=== PATIENT | female | born 1995 | race Two or more races ===

== ENCOUNTER 2025-01-30 09:45 | Emergency (ER) | payer BC ==
[~2025-01-30] VITALS: Ht 149.9 cm; Wt 73.8 kg
[2025-01-30 10:43] LABS: KETONE, URINE AUTO RFX NEGATIVE (NEGATIVE); MUCUS, URINE RFX SMALL (NEGATIVE); NITRITE, URINE AUTO RFX NEGATIVE (NEGATIVE); RBC, URINE AUTO RFX 5 /HPF (0-3); SQUAM EPITHELIAL CELL UR AURFX 3 /HPF (0-6); WBC, URINE AUTO RFX 2 /HPF (0-3)
[2025-01-30 10:44] LABS: LEUKOCYTE ESTERASE UR AUTO RFX 1+ (NEGATIVE)
[2025-01-30 11:26] LABS: PLATELET COUNT, AUTOMATED 289 10^3/uL (150-450)
[2025-01-30 12:01] LABS: ALT/SGPT 15 U/L (7.0-40); AST/SGOT 16 U/L (<34); CALCIUM LEVEL 9.0 MG/DL (8.5-10.1); CARBON DIOXIDE LEVEL 21 MMOL/L (20-31); CHLORIDE LEVEL 103 MMOL/L (98-107); CREATININE FOR GFR 0.60 MG/DL (0.55-1.30); GLOMERULAR FILTRATION RATE > 90.0 (>60); POTASSIUM SERUM 3.9 MMOL/L (3.5-5.1); SODIUM LEVEL 138 MMOL/L (136-145)
[2025-01-30 12:07] LABS: HCG, SERUM QUALITATIVE POSITIVE (NEGATIVE)
[2025-01-30 12:17] LABS: Trichomonas vaginalis (AMP) NOT DETECTED (NEGATIVE)
[2025-01-30 12:36] LABS: HIV 1&2 SCREEN NEGATIVE (NEGATIVE)
[2025-01-30 12:40] LABS: GC DNA AMPLIFICATION NEGATIVE (NEGATIVE)
[2025-01-30 12:43] LABS: HEPATITIS C VIRUS ABY INDEX < 0.02 INDEX (<0.8)
[2025-01-30] MEDS: AZITHROMYCIN 250 MG TABLET PO ONE (13:23)
[2025-01-30 13:27] VITALS: BP 115/69; TEMP 98; O2SAT 97
== END 2025-01-30 13:28 | disposition home or self-care (01) ==
LOC: M ED 09:45
DX: O98.319 Other infections with a predominantly sexual mode of transmission complicating pregnancy, unspecified trimester (principal); O99.519 Diseases of the respiratory system complicating pregnancy, unspecified trimester; Z3A.00 Weeks of gestation of pregnancy not specified